=== PATIENT | female | born 1955 | race Caucasian/White ===

== ENCOUNTER 2017-11-15 08:08 | Day surgery (SDC) ==
[2017-11-15] MEDS: TETRACAINE 0.5% UNIT-DOSE OP PRN ×2 (09:13→09:51)
[2017-11-15] MEDS: BETADINE OPTH PREP OP PRN ×2 (09:14→09:51)
[2017-11-15] MEDS: CYCLOGYL 2% OPTH OP PRN ×3 (09:15→09:25)
[2017-11-15] MEDS ORDERED: MOXIFLOXACIN 150 MCG/0.1 ML-BSS INJ (SURGERY) IO ONE (09:20)
[2017-11-15] MEDS ORDERED: OMIDRIA 1-0.3% IN BSS BAG IR ONE (09:20)
[2017-11-15] MEDS ORDERED: NIRAVAM ODT (SURGERY) PO PRN (09:20)
[2017-11-15] MEDS ORDERED: LIDOCAINE 1% 20 ML MDV ID STA (09:20)
[2017-11-15] MEDS ORDERED: BRIMONIDINE TARTRATE 0.2% OPTH SOL OP PRN (09:20)
[2017-11-15] MEDS ORDERED: LIDOCAINE 1%/PHENYLEPHRINE 1.5% BSS (SURGERY) INTRAOCULA ONE (09:20)
[2017-11-15] MEDS ORDERED: AK-DILATE 10% OPTH SOL OP PRN (09:20)
[2017-11-15] MEDS ORDERED: ZOFRAN 4 MG/2 ML IVP ONE (09:20)
[2017-11-15] MEDS ORDERED: DIPRIVAN 20 ML VIAL IVP ONE (10:00)
[2017-11-15] MEDS ORDERED: SUFENTA IVP ONE (10:00)
[2017-11-15] MEDS ORDERED: VERSED ONE (10:00)
[2017-11-15 11:11] VITALS: BP 122/76; TEMP 97.9
== END 2017-11-15 10:30 | disposition home or self-care (01) ==
LOC: SURG 08:08
PROVIDERS: ATTEND Ophthalmology
DX: H25.812 Combined forms of age-related cataract, left eye (principal)

== ENCOUNTER 2017-11-29 08:32 | Day surgery (SDC) ==
[2017-11-29] MEDS: TETRACAINE 0.5% UNIT-DOSE OP PRN ×3 (08:00→10:06)
[2017-11-29] MEDS: AK-DILATE 10% OPTH SOL OP PRN ×3 (09:00→09:10)
[2017-11-29] MEDS: BETADINE OPTH PREP OP PRN ×2 (09:00→10:06)
[2017-11-29] MEDS: CYCLOGYL 2% OPTH OP PRN ×3 (09:01→09:11)
[2017-11-29] MEDS ORDERED: NIRAVAM ODT (SURGERY) PO PRN (09:03)
[2017-11-29] MEDS ORDERED: LIDOCAINE 1% 20 ML MDV ID STA (09:03)
[2017-11-29] MEDS ORDERED: BRIMONIDINE TARTRATE 0.2% OPTH SOL OP PRN (09:03)
[2017-11-29] MEDS ORDERED: OMIDRIA 1-0.3% IN BSS BAG IR ONE (09:03)
[2017-11-29] MEDS ORDERED: LIDOCAINE 1%/PHENYLEPHRINE 1.5% BSS (SURGERY) INTRAOCULA ONE (09:03)
[2017-11-29] MEDS ORDERED: ZOFRAN 4 MG/2 ML IVP ONE (09:03)
[2017-11-29] MEDS ORDERED: MOXIFLOXACIN 150 MCG/0.1 ML-BSS INJ (SURGERY) IO ONE (09:03)
[2017-11-29] MEDS ORDERED: DIPRIVAN 20 ML VIAL IVP ONE (10:10)
[2017-11-29] MEDS ORDERED: TORADOL ONE (10:10)
[2017-11-29] MEDS ORDERED: SUFENTA IVP ONE (10:10)
[2017-11-29] MEDS ORDERED: VERSED ONE (10:10)
[2017-11-29 10:38] VITALS: BP 157/78; TEMP 98.1
== END 2017-11-29 10:30 | disposition home or self-care (01) ==
LOC: SURG 08:32
PROVIDERS: ATTEND Ophthalmology
DX: H25.811 Combined forms of age-related cataract, right eye (principal)

== ENCOUNTER 2018-11-23 16:42 | Outpatient (CLI) | END 2018-11-23 16:43 | disposition home or self-care (01) | LOC: LAB 16:42 | PROVIDERS: ATTEND Family Medicine | DX: R21 Rash and other nonspecific skin eruption (principal) | CPT/HCPCS: 36415; 80053; 85025 ==